=== PATIENT | male | born 1970 | race Caucasian/White ===

== ENCOUNTER → 2023-09-28 06:27 | Day surgery (SDC) | payer OTHER, SELFPAY | LOC: GI 06:27 | PROVIDERS: ATTENDING PHYSICIAN Internal Medicine | DX: Z12.11 Encounter for screening for malignant neoplasm of colon (principal); D12.2 Benign neoplasm of ascending colon; K31.89 Other diseases of stomach and duodenum; R10.13 Epigastric pain; Z86.010 Personal history of colon polyps | CPT/HCPCS: 45380; 43239; 88305; 88342 ==